=== PATIENT | female | born 1995 | race American Indian/Alaskan Native ===

== ENCOUNTER 2018-07-05 06:12 | Outpatient (CLI) | payer OTHER ==
[2018-07-05] MEDS ORDERED: ZOFRAN IM ONE (07:40)
[2018-07-05] MEDS ORDERED: ZOFRAN ODT PO NR (08:18)
[2018-07-05 08:19] VITALS: BP 110/61
[2018-07-05] MEDS ORDERED: LOMOTIL PO NR (08:30)
== END 2018-07-05 08:48 | disposition home or self-care (01) ==
LOC: TRG 06:12
PROVIDERS: ATTEND Obstetrics & Gynecology
DX: O21.2 Late vomiting of pregnancy (principal); O26.893 Other specified pregnancy related conditions, third trimester; R51 Headache; Z3A.36 36 weeks gestation of pregnancy
CPT/HCPCS: 59025; Q0162